=== PATIENT | male | born 1985 | race Caucasian/White ===

== ENCOUNTER 2018-05-14 17:16 | Emergency (ER) | payer OTHER ==
[~2018-05-14] VITALS: Ht 170.2 cm; Wt 61.0 kg
[2018-05-14] MEDS ORDERED: DOXYCYC MONO100 M2 PO (17:29)
[2018-05-14 18:04] VITALS: BP 121/70
== END 2018-05-14 18:05 | disposition home or self-care (01) | DRG 605 ==
LOC: ED 17:16
PROC: 0HQLXZZ Repair Left Lower Leg Skin, External Approach (ICD-10-PCS; principal; 2018-05-14)
DX: S81.812A Laceration without foreign body, left lower leg, initial encounter (principal); F17.210 Nicotine dependence, cigarettes, uncomplicated; W22.8XXA Striking against or struck by other objects, initial encounter; Y93.89 Activity, other specified; Y92.009 Unspecified place in unspecified non-institutional (private) residence as the place of occurrence of the external cause

== ENCOUNTER 2018-05-21 14:47 | Emergency (ER) | payer OTHER ==
[~2018-05-21] VITALS: Ht 170.2 cm; Wt 60.0 kg
[~2018-05-21 14:47] MED LIST: DOXYCYC MONO100 M2 PO
[2018-05-21 15:25] VITALS: BP 118/64
== END 2018-05-21 15:25 | disposition home or self-care (01) | DRG 950 ==
LOC: ED 14:47
DX: S81.802D Unspecified open wound, left lower leg, subsequent encounter (principal); X58.XXXD Exposure to other specified factors, subsequent encounter; F17.200 Nicotine dependence, unspecified, uncomplicated

== ENCOUNTER 2020-11-30 17:22 | Emergency (ER) | payer OTHER ==
[~2020-11-30] VITALS: Ht 170.2 cm; Wt 63.0 kg
[2020-11-30] MEDS ORDERED: PAXIL30 MG PO (17:27)
[2020-11-30 18:55] VITALS: BP 130/75
== END 2020-11-30 18:55 | disposition home or self-care (01) ==
LOC: ED 17:22
DX: S90.112A Contusion of left great toe without damage to nail, initial encounter (principal); F17.200 Nicotine dependence, unspecified, uncomplicated; Y04.8XXA Assault by other bodily force, initial encounter

== ENCOUNTER 2022-04-09 15:24 | Emergency (ER) | payer OTHER ==
[~2022-04-09] VITALS: Ht 170.2 cm; Wt 65.0 kg
[~2022-04-09 15:24] MED LIST changes: +PAXIL30 MG PO
[2022-04-09 17:36] VITALS: BP 99/63
[2022-04-09] MEDS ORDERED: VIBRAMYCIN100 M2 PO (17:57)
== END 2022-04-09 18:16 | disposition home or self-care (01) ==
LOC: WW 15:24 → ED 16:36 → WW 18:16
DX: S81.832A Puncture wound without foreign body, left lower leg, initial encounter (principal); F17.200 Nicotine dependence, unspecified, uncomplicated; W60.XXXA Contact with nonvenomous plant thorns and spines and sharp leaves, initial encounter; Y93.H2 Activity, gardening and landscaping; Y92.007 Garden or yard of unspecified non-institutional (private) residence as the place of occurrence of the external cause

== ENCOUNTER 2022-04-15 13:28 | Emergency (ER) | payer OTHER ==
[~2022-04-15] VITALS: Ht 170.2 cm; Wt 75.0 kg
[~2022-04-15 13:28] MED LIST changes: +VIBRAMYCIN100 M2 PO
[2022-04-15 15:00] VITALS: BP 102/78
[2022-04-15 15:15] VITALS: BP 124/83
[2022-04-15] MEDS ORDERED: VIBRAMYCIN100 M2 PO (15:15)
[2022-04-15 15:34] VITALS: BP 129/86
== END 2022-04-15 16:08 | disposition home or self-care (01) ==
LOC: ED 13:28
DX: S81.842A Puncture wound with foreign body, left lower leg, initial encounter (principal); X58.XXXA Exposure to other specified factors, initial encounter

== ENCOUNTER 2022-06-17 16:00 | Emergency (ER) | payer OTHER ==
[~2022-06-17] VITALS: Ht 167.6 cm; Wt 63.6 kg
[2022-06-17 17:29] VITALS: BP 120/81
[2022-06-17] MEDS ORDERED: ZOLOFT50 MG PO (17:30)
[2022-06-17 17:45] VITALS: BP 132/84
[2022-06-17 18:00] VITALS: BP 130/76
[2022-06-17 18:15] VITALS: BP 120/73
[2022-06-17] MEDS ORDERED: NAPROXEN500 MG PO (18:20)
[2022-06-17 18:28] VITALS: BP 120/73
== END 2022-06-17 18:48 | disposition home or self-care (01) | DRG 563 ==
LOC: ED 16:00
PROC: 2W3MXYZ Immobilization of Left Lower Extremity using Other Device (ICD-10-PCS; principal; 2022-06-17)
DX: S82.002A Unspecified fracture of left patella, initial encounter for closed fracture (principal); W01.0XXA Fall on same level from slipping, tripping and stumbling without subsequent striking against object, initial encounter